=== PATIENT | female | born 1985 | race Asian ===

== ENCOUNTER 2017-08-21 02:07 | Outpatient (CLI) | payer BC ==
[~2017-08-21] VITALS: Ht 160 cm; Wt 73.0 kg
[2017-08-21] MEDS ORDERED: PROMETHAZINE 25 MG/ML, 1ML ONE (05:08)
[2017-08-21] MEDS ORDERED: MEPERIDINE/PF 100 MG/ML ONE (05:08)
[2017-08-21] MEDS ORDERED: PROMETHAZINE 25 MG/ML, 1ML IM ONE (05:30)
[2017-08-21] MEDS ORDERED: MEPERIDINE/PF 50 MG/ML IM ONE (05:30)
== END 2017-08-21 05:34 | disposition home or self-care (01) ==
LOC: LDOP 02:07
PROVIDERS: ATTEND Obstetrics & Gynecology
DX: O46.93 Antepartum hemorrhage, unspecified, third trimester (principal); Z3A.38 38 weeks gestation of pregnancy
CPT/HCPCS: 59025; 82962; 96372; 99201; J2175; J2550; G0463

== ENCOUNTER 2017-08-21 12:28 | Inpatient (IN) | payer BC ==
[~2017-08-21] VITALS: Ht 160 cm; Wt 72.7 kg
[2017-08-21] MEDS ORDERED: ONDANSETRON 2MG/ML, 2ML ONE (13:47)
[2017-08-21] MEDS ORDERED: LACTATED RINGERS 1,000 ML IV SCH (14:00)
[2017-08-21] MEDS ORDERED: ONDANSETRON 2MG/ML, 2ML IVPush PRN (14:00)
[2017-08-21] MEDS ORDERED: LACTATED RINGERS 500 ML IVBOLUS ONE (14:00)
[2017-08-21] MEDS: LACTATED RINGERS 1,000 ML IV SCH ×5 (14:00→23:30)
[2017-08-21 14:09] VITALS: BP 120/75
[2017-08-21] MEDS ORDERED: OXYTOCIN 30U/ 0.9% NaCL 500ML 500 ML IV PRN ×2 (15:26)
[2017-08-21] MEDS: D5%-LACTATED RINGERS 1,000 ML IV SCH ×2 (15:26→23:26)
[2017-08-21] MEDS ORDERED: OXYTOCIN 30U/ 0.9% NaCL 500ML 500 ML IV ONE (15:26)
[2017-08-21] MEDS ORDERED: FENTANYL PF 100 MCG/2ML IV PRN (15:30)
[2017-08-21] MEDS ORDERED: FENTANYL PF 100 MCG/2ML IVPush PRN (15:30)
[2017-08-21] MEDS: LACTATED RINGERS 1,000 ML IVBOLUS PRN ×2 (15:36→16:49)
[2017-08-21] MEDS ORDERED: NEWBORN KIT ONE (15:39)
[2017-08-21] MEDS ORDERED: OXYTOCIN 30U/ 0.9% NaCL 500ML 500 ML ONE ×2 (15:40→23:34)
[2017-08-21] MEDS ORDERED: MISOPROSTOL 200 MCG TABLET ONE (15:40)
[2017-08-21] MEDS ORDERED: LIDOCAINE/PF 1%, 30ML ONE (15:40)
[2017-08-21] MEDS ORDERED: FENTANYL PF 100 MCG/2ML ONE (15:49)
[2017-08-21 16:01] LABS: BASOPHILS # (AUTO) 0.04 x10^3/uL (0-0.1); BASOPHILS % (AUTO) 0 % (0-1); EOSINOPHILS # (AUTO) 0.01 x10^3/uL (0-0.4); EOSINOPHILS % (AUTO) 0 % (1-7); LYMPHOCYTES % (AUTO) 11 % (22-44); MD NO; MEAN CORPUSCULAR HEMOGLOBIN 28.8 pg (27.0-34.8); MEAN CORPUSCULAR HGB CONC 33.6 g/dL (32.4-35.8); MEAN CORPUSCULAR VOLUME 85.7 fL (80-100); MEAN PLATELET VOLUME 9.6 fL (7.4-10.4); MONOCYTES # (AUTO) 0.36 x10^3/uL (0.2-0.8); MONOCYTES % (AUTO) 3 % (2-9); NEUTROPHILS # (AUTO) 9.47 x10^3/uL (1.8-6.8); NEUTROPHILS % (AUTO) 86 % (42-75); PLATELET COUNT 170 x10^3/uL (130-400); RED BLOOD COUNT 4.76 x10^6/uL (3.82-5.3); RED CELL DISTRIBUTION WIDTH 18.2 % (9.6-15.2)
[2017-08-21] MEDS ORDERED: BUPIVACAINE 0.25% ONE (16:23)
[2017-08-21] MEDS ORDERED: FENTANYL/BUPIV./NS/PF 250 ML EPIDCONT ONE (16:23)
[2017-08-21] MEDS ORDERED: LIDOCAINE/PF 1.5%-EPI 1:200K, 30ML ONE (16:25)
[2017-08-21] MEDS ORDERED: OXYcodone/APAP 5/325MG TABLET PO PRN (20:30)
[2017-08-21] MEDS ORDERED: MISOPROSTOL 200 MCG TABLET PR PRN (20:30)
[2017-08-22] MEDS: OXYTOCIN 30U/ 0.9% NaCL 500ML 500 ML IV SCH ×3 (00:30→16:17)
[2017-08-22 01:10] VITALS: BP 110/69
[2017-08-22 04:30] VITALS: BP 104/67
[2017-08-22] MEDS: LACTATED RINGERS 1,000 ML IV SCH ×6 (05:00→20:00)
[2017-08-22 06:05] LABS: BASOPHILS # (AUTO) 0.15 x10^3/uL (0-0.1); BASOPHILS % (AUTO) 1 % (0-1); EOSINOPHILS # (AUTO) 0.07 x10^3/uL (0-0.4); EOSINOPHILS % (AUTO) 1 % (1-7); LYMPHOCYTES # (AUTO) 1.78 x10^3/uL (1-3.4); LYMPHOCYTES % (AUTO) 16 % (22-44); MD NO; MEAN CORPUSCULAR HEMOGLOBIN 28.8 pg (27.0-34.8); MEAN CORPUSCULAR HGB CONC 33.4 g/dL (32.4-35.8); MEAN CORPUSCULAR VOLUME 86.5 fL (80-100); MONOCYTES # (AUTO) 0.63 x10^3/uL (0.2-0.8); MONOCYTES % (AUTO) 6 % (2-9); NEUTROPHILS # (AUTO) 8.71 x10^3/uL (1.8-6.8); NEUTROPHILS % (AUTO) 77 % (42-75); PLATELET COUNT 158 x10^3/uL (130-400); RED BLOOD COUNT 3.86 x10^6/uL (3.82-5.3); RED CELL DISTRIBUTION WIDTH 17.5 % (9.6-15.2)
[2017-08-22 07:25] VITALS: BP 106/69
[2017-08-22] MEDS: DOCUSATE 100 MG CAPSULE PO PRN ×2 (08:01→22:47)
[2017-08-22] MEDS: IBUPROFEN 600 MG TABLET PO PRN ×3 (08:01→22:47)
[2017-08-22] MEDS: PRENATAL VIT/IRON/FA 1 EACH TABLET PO SCH (08:02)
[2017-08-22 13:02] VITALS: BP 107/70
[2017-08-22 16:03] VITALS: BP 111/75
[2017-08-22 19:30] VITALS: BP 107/72
[2017-08-23] MEDS: LACTATED RINGERS 1,000 ML IV SCH ×4 (01:00→12:35)
[2017-08-23] MEDS: OXYTOCIN 30U/ 0.9% NaCL 500ML 500 ML IV SCH ×2 (02:17→12:17)
[2017-08-23 03:55] VITALS: BP 129/83
[2017-08-23 08:10] VITALS: BP 115/79
[2017-08-23] MEDS: DOCUSATE 100 MG CAPSULE PO PRN (09:58)
[2017-08-23] MEDS: PRENATAL VIT/IRON/FA 1 EACH TABLET PO SCH (09:58)
[2017-08-23] MEDS: IBUPROFEN 600 MG TABLET PO PRN (10:02)
[2017-08-23] MEDS ORDERED: IBUP-1222 PO (13:40)
== END 2017-08-23 16:45 | disposition home or self-care (01) | DRG 775 ==
LOC: LDOP 12:28 → LDIP 13:44 → OBSVTOIN 15:20 → 2NW 08-22 00:50
PROVIDERS: ADMIT Obstetrics & Gynecology; ATTEND Obstetrics & Gynecology
PROC: 10907ZC Drainage of Amniotic Fluid, Therapeutic from Products of Conception, Via Natural or Artificial Opening (ICD-10-PCS; 2017-08-21)
PROC: 10E0XZZ Delivery of Products of Conception, External Approach (ICD-10-PCS; principal; 2017-08-22)
PROC: 3E0R3BZ Introduction of Anesthetic Agent into Spinal Canal, Percutaneous Approach (ICD-10-PCS; 2017-08-22)
PROC: 00HU33Z Insertion of Infusion Device into Spinal Canal, Percutaneous Approach (ICD-10-PCS; 2017-08-22)
PROC: 0W8NXZZ Division of Female Perineum, External Approach (ICD-10-PCS; 2017-08-22)
DX: O69.81X0 Labor and delivery complicated by cord around neck, without compression, not applicable or unspecified (principal); O24.429 Gestational diabetes mellitus in childbirth, unspecified control; Z37.0 Single live birth; Z3A.38 38 weeks gestation of pregnancy
CPT/HCPCS: 36415; 82962; 85025; 86850; 86900; G0378; J2405; J3010; J3490; J7120; J2590

== ENCOUNTER 2019-02-06 14:24 | Emergency (ER) | payer BC ==
[~2019-02-06] VITALS: Ht 160 cm; Wt 72.0 kg
[~2019-02-06 14:24] MED LIST: IBUP-1222 PO
--- NOTE | 2019-02-06 15:05 | NUR ---
PT TO ROOM 13 W/ C/O CRAMPING, BACKACHE, AND MENSTRUATING STARTING 01/16/19 PT HAS BEEN MENSTRUATING X 21 DAYS. WAS SEEN AT [facility] HAD BLOOD TEST THAT WAS WNL AND [facility] WANT PT TO HAVE US. PT RESTING ON GURNEY. NADN. MONITORS APPLIED.
--- NOTE | 2019-02-06 15:16 | NUR ---
OMID EASLEY AT BEDSIDE.
[2019-02-06] MEDS ORDERED: ONDANSETRON ODT 4 MG ONE (15:25)
[2019-02-06] MEDS ORDERED: ONDANSETRON ODT 4 MG PO ONE (15:30)
[2019-02-06 16:08] LABS: BASOPHILS # (AUTO) 0.02 x10^3/uL (0-0.1); BASOPHILS % (AUTO) 0 % (0-1); EOSINOPHILS # (AUTO) 0.35 x10^3/uL (0-0.4); EOSINOPHILS % (AUTO) 5 % (1-7); LYMPHOCYTES # (AUTO) 2.31 x10^3/uL (1-3.4); LYMPHOCYTES % (AUTO) 30 % (22-44); MD NO; MEAN CORPUSCULAR HEMOGLOBIN 29.7 pg (27.0-34.8); MEAN CORPUSCULAR HGB CONC 33.6 g/dL (32.4-35.8); MEAN CORPUSCULAR VOLUME 88.3 fL (80-100); MEAN PLATELET VOLUME 8.6 fL (7.4-10.4); MONOCYTES # (AUTO) 0.57 x10^3/uL (0.2-0.8); MONOCYTES % (AUTO) 7 % (2-9); NEUTROPHILS # (AUTO) 4.51 x10^3/uL (1.8-6.8); NEUTROPHILS % (AUTO) 58 % (42-75); PLATELET COUNT 297 x10^3/uL (130-400); RED BLOOD COUNT 5.02 x10^6/uL (3.82-5.3); RED CELL DISTRIBUTION WIDTH 13.5 % (9.6-15.2)
[2019-02-06 16:10] LABS: MICROSCOPIC NOT IND
[2019-02-06 16:13] LABS: CULTURE INDICATED? NO
[2019-02-06 16:15] LABS: ALBUMIN 4.5 g/dL (3.4-5.0); ANION GAP 4 mmol/L (5-15); CALCIUM 9.5 mg/dL (8.5-10.1); CHLORIDE 106 mmol/L (98-107); CREATININE 0.81 mg/dL (0.55-1.02)
--- NOTE | 2019-02-06 16:15 | NUR ---
PT RESTING ON GURNEY. NADN. PICKETT.
[2019-02-06 17:04] VITALS: BP 149/95
== END 2019-02-06 17:06 | disposition home or self-care (01) ==
LOC: ED 17:00
DX: N93.9 Abnormal uterine and vaginal bleeding, unspecified (principal); R10.2 Pelvic and perineal pain; M54.5 Low back pain
CPT/HCPCS: 36415; 76830; 80048; 81003; 82040; 84703; 85025; 99284; Q0162

== ENCOUNTER 2019-03-28 21:32 | Emergency (ER) | payer BC ==
[~2019-03-28] VITALS: Ht 160 cm; Wt 72.0 kg
[2019-03-28] MEDS ORDERED: MAALOX/HYOSCYAMINE/LIDOCAINE 45 ML BTL ONE (22:21)
[2019-03-28] MEDS ORDERED: ONDANSETRON ODT 4 MG ONE (22:21)
--- NOTE | 2019-03-28 22:24 | NUR ---
PT RESTING ON GURNEY, MONITORS APPLIED, SIDERAIL SUP X2, MEDICATED PER MAR, CALL LIGHT WITHIN REACH. AWAITING LAB AND XRAY RESULTS
[2019-03-28] MEDS ORDERED: ONDANSETRON ODT 8 MG PO ONE (22:30)
[2019-03-28] MEDS ORDERED: MAALOX/HYOSCYAMINE/LIDOCAINE 45 ML BTL PO ONE (22:30)
[2019-03-28 22:37] LABS: BASOPHILS # (AUTO) 0.06 x10^3/uL (0-0.1); BASOPHILS % (AUTO) 1 % (0-1); EOSINOPHILS # (AUTO) 0.35 x10^3/uL (0-0.4); EOSINOPHILS % (AUTO) 5 % (1-7); LYMPHOCYTES # (AUTO) 2.84 x10^3/uL (1-3.4); LYMPHOCYTES % (AUTO) 40 % (22-44); MD NO; MEAN CORPUSCULAR HEMOGLOBIN 29.5 pg (27.0-34.8); MEAN CORPUSCULAR HGB CONC 34.1 g/dL (32.4-35.8); MEAN CORPUSCULAR VOLUME 86.4 fL (80-100); MEAN PLATELET VOLUME 8.3 fL (7.4-10.4); MONOCYTES # (AUTO) 0.39 x10^3/uL (0.2-0.8); MONOCYTES % (AUTO) 6 % (2-9); NEUTROPHILS # (AUTO) 3.45 x10^3/uL (1.8-6.8); NEUTROPHILS % (AUTO) 49 % (42-75); PLATELET COUNT 299 x10^3/uL (130-400); RED BLOOD COUNT 4.15 x10^6/uL (3.82-5.3); RED CELL DISTRIBUTION WIDTH 12.9 % (9.6-15.2)
[2019-03-28 22:47] LABS: ALANINE AMINOTRANSFERASE 27 U/L (12-78); ALBUMIN 3.6 g/dL (3.4-5.0); ANION GAP 6 mmol/L (5-15); CALCIUM 9.5 mg/dL (8.5-10.1); CHLORIDE 107 mmol/L (98-107); CREATININE 0.71 mg/dL (0.55-1.02)
[2019-03-28 22:52] LABS: ALKALINE PHOSPHATASE 19 U/L (45-117); BILIRUBIN,TOTAL 0.1 mg/dL (0.2-1.0); TOTAL PROTEIN 7.7 g/dL (6.4-8.2); TROPONIN I < 0.015 ng/mL (0.000-0.045)
--- NOTE | 2019-03-28 23:08 | NUR ---
pt up to rr with steady gait
[2019-03-28] MEDS ORDERED: FAMOTIDINE 20 MG TABLET ONE (23:49)
[2019-03-28] MEDS ORDERED: ACETAMINOPHEN 500 MG TABLET ONE (23:49)
[2019-03-28 23:54] VITALS: BP 146/96
[2019-03-29] MEDS ORDERED: ACETAMINOPHEN 500 MG TABLET PO ONE
[2019-03-29] MEDS ORDERED: FAMOTIDINE 20 MG TABLET PO ONE
== END 2019-03-28 23:56 | disposition home or self-care (01) ==
LOC: ED 22:02
DX: R07.89 Other chest pain (principal)
CPT/HCPCS: 36415; 71045; 80053; 83690; 84484; 85025; 85379; 93005; 99284; Q0162

== ENCOUNTER 2019-04-02 12:44 | Emergency (ER) | payer BC ==
[~2019-04-02] VITALS: Ht 160 cm; Wt 71.1 kg
[2019-04-02] MEDS ORDERED: ONDANSETRON ODT 8 MG PO ONE (13:00)
[2019-04-02 13:19] LABS: BASOPHILS # (AUTO) 0.05 x10^3/uL (0-0.1); BASOPHILS % (AUTO) 1 % (0-1); EOSINOPHILS # (AUTO) 0.23 x10^3/uL (0-0.4); EOSINOPHILS % (AUTO) 4 % (1-7); LYMPHOCYTES # (AUTO) 2.08 x10^3/uL (1-3.4); LYMPHOCYTES % (AUTO) 32 % (22-44); MD NO; MEAN CORPUSCULAR HEMOGLOBIN 29.1 pg (27.0-34.8); MEAN CORPUSCULAR HGB CONC 33.8 g/dL (32.4-35.8); MEAN CORPUSCULAR VOLUME 86.2 fL (80-100); MEAN PLATELET VOLUME 8.2 fL (7.4-10.4); MONOCYTES # (AUTO) 0.37 x10^3/uL (0.2-0.8); MONOCYTES % (AUTO) 6 % (2-9); NEUTROPHILS % (AUTO) 58 % (42-75); PLATELET COUNT 300 x10^3/uL (130-400); RED BLOOD COUNT 4.41 x10^6/uL (3.82-5.3); RED CELL DISTRIBUTION WIDTH 12.6 % (9.6-15.2)
[2019-04-02 13:26] LABS: ALANINE AMINOTRANSFERASE 32 U/L (12-78); ALBUMIN 3.7 g/dL (3.4-5.0); ANION GAP 7 mmol/L (5-15); CALCIUM 9.3 mg/dL (8.5-10.1); CHLORIDE 105 mmol/L (98-107); CREATININE 0.79 mg/dL (0.55-1.02)
[2019-04-02] MEDS ORDERED: PLEASE ENTER HEIGHT AND WEIGHT MC SCH (13:30)
[2019-04-02 13:31] LABS: ALKALINE PHOSPHATASE 21 U/L (45-117); BILIRUBIN,TOTAL 0.3 mg/dL (0.2-1.0); TOTAL PROTEIN 7.8 g/dL (6.4-8.2)
[2019-04-02] MEDS ORDERED: ONDANSETRON ODT 8 MG ONE (14:07)
--- NOTE | 2019-04-02 14:12 | NUR ---
PATIENT MEDICATED PER EMAR, TOLERATED WELL. PATIENT AMBULATORY WITH STEADY GAIT TO RESTROOM. UA CUP AND INSTRUCTIONS PROVIDED
--- NOTE | 2019-04-02 14:14 | NUR ---
THIS IS A 33 YO FEMALE COMING IN FOR N/V/D STARTING LAST WEEK, DENIES DIARRHEA TODAY. PATIENT DENIES ANY MEDICAL HX, ONLY MEDS TAKEN AT HOME ARE IBUPROFEN. PATIENT A&OX4, DENIES ABD PAIN. VSS IN TRIAGE, PATIENT IS HYPERTENSIVE. SPO2 AND BP MONITORING IN PLACE, NAD, CALL LIGHT IN REACH. FAMILY IN ROOM
[2019-04-02 14:41] LABS: MICROSCOPIC AUTO
[2019-04-02 14:55] LABS: CULTURE INDICATED? NO
--- NOTE | 2019-04-02 15:06 | NUR ---
RECEIVED REPORT AND CARE FROM JOSIANE AND BROOK RN'S AT THIS TIME. PT RESTING IN POSITION OF COMFORT. DENIES ANY NAUSEA. GIVEN WATER FOR PO CHALLENGE PER MD, TOLERATING WELL AT THIS TIME. TO CALL IF EMESIS/NAUSEA OCCUR. PT UP FOR RECHECK. VSS. BP IMPROVED FROM TRIAGE. REPORTS 2/10 RACHEL PAIN, "IT'S BETTER BECAUSE THE IBUPROFEN I TOOK." REFUSES NEED FOR ADDITIONAL PAIN MEDICATION. FAMILY AT BEDSIDE. AWAITING RECHECK. CALL LIGHT IN REACH. FALL PRECAUTIONS IN PLACE.
--- NOTE | 2019-04-02 15:47 | NUR ---
AT BEDSIDE FOR RECHECK, AWAITING CHART AND DISCHARGE PAPERS.
[2019-04-02 16:03] VITALS: BP 154/95
== END 2019-04-02 16:05 | disposition home or self-care (01) ==
LOC: ED 14:28
DX: R11.2 Nausea with vomiting, unspecified (principal); R19.7 Diarrhea, unspecified; I10 Essential (primary) hypertension
CPT/HCPCS: 36415; 80053; 81001; 84703; 85025; 99283; Q0162